=== PATIENT | female | born 1980 | race Two or more races ===

== ENCOUNTER 2024-06-08 12:48 | Emergency (ER) | payer MEDICAID, SELFPAY ==
[2024-06-08 13:10] VITALS: BP 117/78; PULSE 98; RESP 20; TEMP 37; O2SAT 98
[2024-06-08 13:39] VITALS: PULSE 108; RESP 18; O2SAT 98; BMI 24.7
[2024-06-08 13:45] LABS: Base Excess, Venous -3 (-3-3); O2 Saturation, Venous 78 % (96-97); PCO2, Venous 36 mmHg (36-56); PO2, Venous 45 mmHg (15-58); pH, Venous 7.39 (7.33-7.66)
--- NOTE | 2024-06-08 13:49 | PC.NURSE ---
Patient to er via ems from snf, patient was being released and was erratic, unable to compile with safety plan, therefore, patient placed on 72hr hold for gravely disable, no SI or HI, however, upon EMS arrival patient was combative and yelling out, ems placed patient in restraints and patient was given 4mg Versed IM by EMS, patient sleeping, awakens to touch, patient not answering all questions, yells intermittently, continued need for restraints per Provider do to patient being combative, 1:[address] for patient and staff safety.
[2024-06-08 13:52] LABS: Basophils % (Auto) 0 % (0-2.5); Eosinophils # (Auto) 0.1 Thou/mm3 (0.0-0.5); Eosinophils % (Auto) 1 % (0-10); Hematocrit 27.9 % (36.0-46.0); Hemoglobin 8.9 g/dL (12.0-16.0); Immature Granulocytes % (Auto) 1 % (0-0); Immature Granulocytes Auto 0.05 Thou/mm3 (0.00-0.00); Lymphocytes # (Auto) 1.8 Thou/mm3 (1.0-4.8); Lymphocytes % (Auto) 19 % (10-50); Mean Corpuscular HGB Conc 31.9 g/dl (31.0-37.0); Mean Corpuscular Hemoglobin 26.8 pg (25.0-35.0); Mean Corpuscular Volume 84 fL (80-100); Monocytes # (Auto) 0.7 Thou/mm3 (0.0-0.8); Monocytes % (Auto) 8 % (0-12); Neutrophils # (Auto) 6.8 Thou/mm3 (1.8-7.7); Neutrophils % (Auto) 72 % (37-80); Nucleated Red Blood Cell % 0 /100 WBC (0); Platelet Count 248 Thou/mm3 (140-440); RDW Standard Deviation 45.1 fL (36.4-46.3); Red Blood Count 3.32 Miln/mm3 (4.00-5.20); White Blood Count 9.5 Thou/mm3 (3.6-11.0)
--- NOTE | 2024-06-08 13:54 | PC.NURSE ---
Patient sleeping intermittently, no hyperactivity noted at this time, all 4point soft restraints removed, 1:[address] for patient and staff safety.
--- NOTE | 2024-06-08 13:55 | PC.NURSE ---
patient allowed lab to draw blood work.
[2024-06-08 14:15] LABS: Acetaminophen < 2.0 mcg/mL (10.0-20.0); Alanine Aminotransferase 7 U/L (10-49); Albumin, Serum 3.6 gm/dL (3.5-5.0); Albumin/Globulin Ratio 0.9 (1.2-2.2); Alcohol, Blood Medical < 3.0 mg/dL (0-10.0); Alkaline Phosphatase 84 U/L (46-116); Anion Gap 14 (7-16); Aspartate Amino Transferase 18 U/L (0-34); BUN/Creatinine Ratio 24 Ratio (12-20); Bilirubin,Total 0.8 mg/dL (0.3-1.2); Blood Urea Nitrogen 19 mg/dL (9-23); Calcium 9.3 mg/dL (8.3-10.6); Calcium (Corrected) 9.6 mg/dL (8.5-10.1); Carbon Dioxide 19.9 mMol/L (20.0-31.0); Chloride 103 mMol/L (98-107); Creatine Kinase 103 U/L (34-171); Creatinine (Component) 0.8 mg/dL (0.6-1.3); Estimated Creatinine Clearance 76.5 mL/min (>60); Globulin 4.1 gm/dL (2.3-3.5); Glucose 77 mg/dL (74-106); Magnesium 1.8 mg/dL (1.6-2.6); Osmolality,Calculated 275 (275-295); Potassium 3.4 mMol/L (3.4-5.1); Salicylate < 3.0 mg/dL; Sodium 137 mMol/L (136-145); Thyroid Stimulating Hormone 1.18 uIU/mL (0.55-4.78); Total Protein 7.7 gm/dL (5.7-8.2); eGFR > 60 See Note
[2024-06-08 14:17] LABS: HCG,Qualitative Serum Negative
--- NOTE | 2024-06-08 16:22 | PC.SS ---
Patient PORTER on 5150 Hold from [facility] for DTO and Gravely Disabled. 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 During those visits, the patient was cleared by [facility] Crisis staff and/or [facility] social media community manager staff and referred with outpatient services/resources. Bakari met at bed side with the patient. ASW introduced self, role and reason for contact. ASW disclosed limits of confidentiality. During contact, the patient appeared alert to self, however not to place or situation. Patient denies knowledge of what brought her into the ED. Patient's thought process is unclear and disorganized. Patient denies having a history of mental health and/or taking medications. Patient admits to substance use. Patient reports choice of substance is methamphetamine. Patient reports daily use of substance. Patient denies being connected to any outpatient services. Per patient, she reports being able to complete ADL's. Denies use of DME. Patient informs she goes to [facility] in [place] for primary care. Patient assigned her sister, Rylie Hazel as her emergency contact and gave verbal consent for family to be contacted. Patient confirmed home address on facesheet. Patient currently denies SI and HI. Patient denies audio and visual hallucinations at this time. Patient is pending medical clearance at this time.
--- NOTE | 2024-06-08 16:40 | PD.EDPSYCH ---
ED Psych RME/HPI General Chief Complaint: Psychiatric Symptoms Stated Complaint: MENTAL EVAL Time Seen by Provider: 06/08/24 13:02 Arrival date/time: 06/08/24 12:48 RME / HPI RME / HPI Narrative: This section includes all my notes and documentations, including HPI, PE, and ED course. Siddharth Tarango MD HPI: 43-year-old female here for psychiatric evaluation. With 5150 hold from a nearby snf. With psychosis and delusions. And aggressive and combative behavior and inappropriate behavior, including urinating on herself and sexually inappropriate gestures. Can't obtain history from the patient. She doesn't answer questions appropriately or directly. ROS: Can't obtain from the patient due to current clinical condition. Physical Exam: General: Alert but uncertain about orientation. She doesn't answer my questions. She yelled loudly and aggressively, swearing in Syriac at everyone nearby. Unable to assess SI or HI or hallucinations. Eyes: Conjunctivae and lids clear. EOMI. PERRL. ENT: No nasal congestion. Neck: Supple. Heart: RRR. Lungs: No respiratory distress. Good air movement. No rhonchi, wheezing, rales. Abdomen: Soft and nontender. Legs: No clubbing, cyanosis, edema. Skin: Warm and dry. Neuro: Alert. Cranial Nerves II-XII grossly intact. No peripheral motor deficits. Blood tests unremarkable. Urine specimen pending. Patient received Versed by EMS. Patient eventually fell asleep and remained stable. At 6 PM on 06/08/2024, the care of the patient was transferred to Dr. Francis. Siddharth Tarango MD Related Data Home Medications ?Medication ?Instructions ?Recorded ?Confirmed Unobtainable 12/18/20 01/03/21 Allergies Allergy/AdvReac Type Severity Reaction Status Date / Time No Known Allergies Allergy Verified 10/08/20 09:58 Course Quality Measures none Orders Category Date Time Status 4 HR Behavioral Restraints Q15M Care 06/08/24 13:57 Active Acetaminophen Stat Lab 06/08/24 13:42 Completed Alcohol, Blood Medical Stat Lab 06/08/24 13:42 Completed CBC Stat Lab 06/08/24 13:42 Completed CK [Creatine Kinase] Stat Lab 06/08/24 13:42 Completed CMP [Comprehensive Metabolic Panel] Stat Lab 06/08/24 13:42 Completed Drug Screen,Urine Stat Lab 06/08/24 13:03 Ordered HCG Qualitative,Urine Stat Lab 06/08/24 13:03 Ordered HCG,Qualitative Serum Stat Lab 06/08/24 13:42 Completed Magnesium Stat Lab 06/08/24 13:42 Completed Salicylate Stat Lab 06/08/24 13:42 Completed TSH [Thyroid Stimulating Hormone] Stat Lab 06/08/24 13:42 Completed UA, C/S IF [Urinalysis, C/S if Indicated] Stat Lab 06/08/24 13:03 Ordered VBG [Venous Blood Gas] Stat Lab 06/08/24 13:42 Completed Vital Signs Vital signs: Vital Signs Temperature 98.6 F 06/08/24 13:10 Pulse Rate 98 06/08/24 13:10 Respiratory Rate 20 06/08/24 13:10 Blood Pressure 117/78 06/08/24 13:10 Pulse Oximetry (%) 98 06/08/24 13:10 Oxygen Delivery Method Room Air 06/08/24 13:10 Psych Patient data External records reviewed:: [facility] previous records and EMS form Clinical information provided by:: EMS and law enforcement Social determinants that could affect healthcare access:: mental health Patient has the following chronic illnesses:: Substance abuse How is presenting disease/condition affected by chronic disease/condition?: exacerbated by Evaluation data The following diagnostics were reviewed and interpreted by me:: lab results Lab and/or radiology exams considered but not ordered:: None Interpretation Summary: Complete diagnostics pending Medications / Prescriptions Medications or Prescriptions considered but not ordered:: None Medication administrations:: None Consultations Consultation(s) initiated? (list below): No Diagnosis Psych Differential Diagnosis: acute psychosis, chronic schizophrenia, suicidal ideation, bipolar disorder, depression, drug-induced psychotic disorder and acute anxiety Most likely diagnosis given after review of the tests above:: Acute psychosis and probable drug influence Admission Indicated Admission indicated?: not indicated (Complete diagnostics pending) Explain why admission is indicated or not indicated:: Complete diagnostics pending Admission Request Was there a request for admission?: No Disposition Plan Disposition Plan: other (specify) (Care of the patient transferred to Dr. Francis) Discharge Plan Prescriptions/Referrals Prescriptions/Med Rec: No Action Unobtainable Referrals: Clifford Kathleen MD [Primary Care Provider] - In 1 week Problem List Clinical Impression: Acute psychosis Patient/Caregiver Discharge Instructions Print Language: Syriac
[2024-06-08 16:49] VITALS: BP 115/64; PULSE 102; RESP 16; TEMP 37; O2SAT 100
--- NOTE | 2024-06-08 17:11 | PC.SS ---
Collateral contact: Attempted contact with patient's sister, Rylie Hazel at . There was no answer and voicemail was provided. Established contact with patient's mother, Tiffanie Love . Tiffanie informs patient has severe substance use history. Tiffanie reports [place]. Per Tiffanie the patient was in [facility] for approximately one year and had remained sober of substances and seeking mental health services. Per Tiffanie, the patient was recently released from [facility] and on Thursday of this week the patient was again arrested and taken into custody, which deputies informed her that the patient would only be held for a short period and then released. Tiffanie reports the patient has a history of mental health, unknown if diagnosed with Schizophrenia. Per Tiffanie the patient was connected to [facility] in the past and was connected to AOD services, with random drug testing when sober. Patient's mother informs the patient does not have a partner or spouse. She reports the patient has four children, who are adult ages with exception of a minor of 17 years of age under their father's Harvey Robert custody. Tiffanie informs the patient does not have any contact with her children nor ex-partner Harvey. Patient's mother Tiffanie informs the address on facesheet is her home address and informs she is willing to safety plan and provided patient with support and ensure outpatient service follow up is established.
--- NOTE | 2024-06-08 17:41 | PC.NURSE ---
Patient more calm and cooperative answering questions appropriately, patient denies SI and HI, informed her of need of urine sample, patient placed on bed landry. Patient hungry, ok to order regular food tray per Dr. Tarango
--- NOTE | 2024-06-08 18:22 | PD.EDADDENDU ---
Emergency Room Addendum Addendum Narrative: [address] Tarango, the previous shift emergency physician. Past medical, surgical, social and family history reviewed. Vitals and home medications reviewed. Results and treatment plan discussed. I will assume the care of the patient at this time and will follow the patient, pending mental health evaluation and possible placement. Please refer to the emergency department record for history and examination from initial visit. Patient was placed in ED observation for treatment and monitoring of psychiatric symptoms, at 1800 06/08/2024. Symptoms consist of psychosis and delusions, aggressive and combative behavior and inappropriate behavior, including urinating on herself and sexually inappropriate gestures per previous ED provider. Treatment plan includes psychiatric consult, reassessments, and possible placement into psychiatric facility. The patient had access and provided personal hygiene, shower, food, water, and daily medications. 2141 Patient is medically cleared for mental health evaluation. 0600 Care signed out to oncoming dayshift provider. Past medical, surgical, social and family history reviewed. Vitals and home medications reviewed. Results and treatment plan discussed. They will assume the care of the patient at this time and will follow the patient, pending mental health evaluation and possible placement.
[2024-06-08 19:37] LABS: Collection Type, Urine Clean Catch
[2024-06-08 20:04] LABS: HCG Qualitative,Urine Negative
[2024-06-08 20:06] LABS: Bilirubin,Urine Negative (Negative); Blood,Urine Negative (Negative); Clarity,Urine Clear (Clear/Hazy); Color,Urine Yellow (Lt Yel-Yel); Culture Indicated,Urine Not Indicated; Glucose, Urine Negative (Negative); Ketones,Urine 4+ (Negative); Leukocyte Esterase,Urine Negative (Negative); Nitrite,Urine Negative (Negative); Protein,Urine 1+ (Neg - Trace); RBC,Urine 3 /hpf (0-3); Specific Gravity,Urine 1.036 (1.001-1.035); Squamous Epithelial Cell,Urine 9 /hpf (0-5); Urobilinogen,Urine Negative mg/dL (0.0-1.0); WBC,Urine 3 /hpf (0-5)
[2024-06-08 20:22] VITALS: BP 112/70; PULSE 82; RESP 16; TEMP 36.9; O2SAT 100
[2024-06-08 21:02] LABS: Amphetamine/Methamp Scrn,U Positive (Negative); Barbiturate Screen,Urine Negative (Negative); Benzodiazepines Screen,Urine Positive (Negative); Benzoylecgonine Screen, Ur Negative (Negative); Fentanyl Screen,Urine Negative (Negative); Opiate Screen,Urine Negative (Negative); THC Screen,Urine Negative (Negative)
[2024-06-08] MEDS: SODIUM CHLORIDE 0.9% 1000 ML 1,000 ML 999 ML IV (22:40)
[2024-06-09 01:41] VITALS: BP 132/78; PULSE 76; RESP 16; TEMP 36.8; O2SAT 100
[2024-06-09 06:05] VITALS: BP 106/66; PULSE 86; RESP 18; TEMP 36.8; O2SAT 99
[2024-06-09 07:55] VITALS: BP 98/57; PULSE 73; RESP 16; TEMP 36.6; O2SAT 100
--- NOTE | 2024-06-09 07:55 | PC.NURSE ---
Pt woken up for meal tray and vital signs. Pt calm and sooperative at this time. Pt states is in the hospital because i yelled at my cousin>' Informed pt that social worker school will come see her later.
--- NOTE | 2024-06-09 08:24 | PD.EDADDENDU ---
Emergency Room Addendum <Giovanna Guy - Last Filed: 06/09/24 08:44> Addendum Narrative: At 6 AM on 06/09/2024, the care of the patient was transferred from Dr. Francis, see his notes for complete H&P and ED course. I reviewed all diagnostic test results. At this point, diagnoses include Treatment here included Significant improvement Our ASW has evaluated the patient and rescinded the 5150 hold. Report patient does not meet admission criteria. Patient discharged home in stable condition. Siddharth Tarango MD <Siddharth Tarango MD - Last Filed: 06/09/24 09:06> Addendum Narrative: At 6 AM on 06/09/2024, the care of the patient was transferred from Dr. Francis, see his notes and previous notes for complete H&P and ED course. Diagnostic tests remarkable for positive methamphetamine on UDS. Patient returned to baseline. Our ASW has evaluated the patient and rescinded the 5150 hold. Reports patient does not meet admission criteria. Patient discharged home in stable condition. Based on my best medical judgment, made decision no further evaluation or treatment indicated at this time.? Patient understands and agrees to the discharge instructions customized and printed, see below. Siddharth Tarango MD Discharge instructions from Dr. Tarango: 1. You are being discharged home because you return to your baseline after methamphetamine intoxication. 2. To prevent future similar episodes which can be even more severe, potentially causing severe injuries and even being fatal, avoid methamphetamine and all other illegal substances. 3. See a private doctor on 06/10/2024 for recheck and further care. Including help with psychiatric and mental health services. 4. Seek immediate medical care with worsening or with any concerns. Instrucciones de ricky del Dr. Tarango: 1. Le est?n dando el ricky para irse a casa porque newby vuelto a maxwell estado normal despu?s de la intoxicaci?n con metanfetamina. 2. Para prevenir futuros episodios similares que pueden ser incluso m?s graves, potencialmente causando lesiones graves e incluso fatales, evite la metanfetamina y todas las dem?s sustancias ilegales. 3. Visite a un m?dico privado el 10/06/2024 para volver a examinarlo y recibir m?s atenci?n. Incluyendo ayuda con servicios psiqui?tricos y de mckayla mental. 4. Busque atenci?n m?dica inmediata si empeora o si tiene alguna inquietud. Siddharth Tarango MD
--- NOTE | 2024-06-09 08:30 | PC.CC ---
Patient is 43 year old female BIBA on 5150 Hold from [facility] for DTO and Gravely Disabled. Waqar met at bed side with the patient. ASW introduced self, role and reason for contact. ASW disclosed limits of confidentiality. Patient appeared alert and oriented to self, location, and situation. Patient?s mood was euthymic and engaged in assessment. Patient?s thought process was linear and organized. Patient reports suicidal ideations 6-7 years ago but denies current suicidal ideation. Patient denies auditory and visual hallucination and homicidal ideations. Patient admits to substance use. Patient reports choice of substance is methamphetamine. Patient reports daily use of substance. Patient denies being connected to any outpatient services. Patient stated, ?I don?t need mental health services because I am not crazy.? Patient reports she is homeless. Patient reports she is tired and just needs to rest and eat at her mother, Tiffanie?s home. Patient does not want to be connected to mental health services. The following information was gathered from Rosemary KING on 06/08/2024. Collateral contact: Attempted contact with patient's sister, Rylie Hazel at . There was no answer and voicemail was provided. Established contact with patient's mother, Tiffanie Love . Tiffanie informs patient has severe substance use history. Tiffanie reports [place] on and off. Per Tiffanie the patient was in [facility] for approximately one year and had remained sober of substances and seeking mental health services. Per Tiffanie, the patient was recently released from [facility] and on Thursday of this week the patient was again arrested and taken into custody, which deputies informed her that the patient would only be held for a short period and then released. Tiffanie reports the patient has a history of mental health, unknown if diagnosed with Schizophrenia. Per Tiffanie the patient was connected to [facility] in the past and was connected to AOD services, with random drug testing when sober. Patient's mother informs the patient does not have a partner or spouse. She reports the patient has four children, who are adult ages with exception of a minor of 17 years of age under their father's Harvey Robert custody. Tiffanie informs the patient does not have any contact with her children nor ex-partner Harvey. Patient's mother Tiffanie informs the address on facesheet is her home address and informs she is willing to safety plan and provided patient with support and ensure outpatient service follow up is established. ASW, made contact with patient?s mother Tiffanie who reports she is willing to take the patient into her home and attempt to provide extra supervision for the next 72 hours, but ultimately the patient is an adult and can make her own choices. Upon clinical consultation with Tatum Levin, patient?s 5150-hold will be rescinded with safety plan as patient does not meet criteria. Safety plan is patient will be discharged to her mother?s home. Referral for outpatient mental health services at [facility] with AOD services. ?
--- NOTE | 2024-06-09 08:33 | PC.CC ---
Afshan KING proivided update of discharge plan with safety plan to Dr. Tarango, senior attorney Sara, and SANDI Tom.
--- NOTE | 2024-06-09 09:02 | PC.NURSE ---
social media director has cleared pt from 6080 hold
== END 2024-06-09 09:12 | disposition home or self-care (01) ==
PROVIDERS: Emergency Provider Emergency Medicine; PCP Family Medicine
DX: Z00.8 Encounter for other general examination (principal); F23 Brief psychotic disorder; F15.10 Other stimulant abuse, uncomplicated; Z78.1 Physical restraint status
CPT/HCPCS: 36415; 80053; 80307; 80320; 80329; 81001; 81025; 82550; 82803; 83735; 84443; 84703; 85025; 90839; 96127; 96360; 99285; J7030; G0480

== ENCOUNTER 2024-08-26 12:38 | Emergency (ER) | payer MEDICAID, SELFPAY ==
[2024-08-26 12:53] VITALS: BP 127/85; PULSE 72; RESP 17; TEMP 36.8; O2SAT 100
--- NOTE | 2024-08-26 12:56 | PD.EDRME ---
Rapid Medical Screening Exam RME Arrival date/time: 08/26/24 12:38 44-year-old female with history of psychiatric disorder as well as methamphetamine abuse presents for concerns for anxiety and depression Chief Complaint: Depression Vital signs: Vital Signs Temperature 98.2 F 08/26/24 12:53 Pulse Rate 72 08/26/24 12:53 Respiratory Rate 17 08/26/24 12:53 Blood Pressure 127/85 H 08/26/24 12:53 Pulse Oximetry (%) 100 08/26/24 12:53 Oxygen Delivery Method Room Air 08/26/24 12:53
[2024-08-26 13:17] LABS: Collection Type, Urine Clean Catch
[2024-08-26 13:24] LABS: Bacteria,Urine Rare; Bilirubin,Urine Negative (Negative); Blood,Urine Negative (Negative); Color,Urine Lt-Yellow (Lt Yel-Yel); Culture Indicated,Urine Contaminated; Glucose, Urine Negative (Negative); Ketones,Urine Negative (Negative); Leukocyte Esterase,Urine Positive (Negative); Nitrite,Urine Negative (Negative); PH,Urine 6.5 (5.0-7.0); Protein,Urine Negative (Neg - Trace); RBC,Urine 5 /hpf (0-3); Specific Gravity,Urine 1.019 (1.001-1.035); Squamous Epithelial Cell,Urine 122 /hpf (0-5); Urobilinogen,Urine Negative mg/dL (0.0-1.0); WBC,Urine 14 /hpf (0-5)
[2024-08-26 13:28] LABS: Basophils % (Auto) 0 % (0-2.5); Eosinophils % (Auto) 1 % (0-10); Hematocrit 34.1 % (36.0-46.0); Hemoglobin 11.1 g/dL (12.0-16.0); Immature Granulocytes % (Auto) 0 % (0-0); Immature Granulocytes Auto 0.01 Thou/mm3 (0.00-0.00); Lymphocytes # (Auto) 1.5 Thou/mm3 (1.0-4.8); Lymphocytes % (Auto) 29 % (10-50); Mean Corpuscular HGB Conc 32.6 g/dl (31.0-37.0); Mean Corpuscular Hemoglobin 26.9 pg (25.0-35.0); Mean Corpuscular Volume 83 fL (80-100); Monocytes # (Auto) 0.3 Thou/mm3 (0.0-0.8); Monocytes % (Auto) 5 % (0-12); Neutrophils # (Auto) 3.3 Thou/mm3 (1.8-7.7); Neutrophils % (Auto) 64 % (37-80); Nucleated Red Blood Cell % 0 /100 WBC (0); Platelet Count 218 Thou/mm3 (140-440); RDW Standard Deviation 46.9 fL (36.4-46.3); Red Blood Count 4.12 Miln/mm3 (4.00-5.20); White Blood Count 5.1 Thou/mm3 (3.6-11.0)
[2024-08-26 13:30] LABS: Clarity,Urine Hazy (Clear/Hazy)
[2024-08-26 13:33] LABS: HCG Qualitative,Urine Negative
[2024-08-26 13:35] LABS: Amphetamine/Methamp Scrn,U Negative (Negative); Barbiturate Screen,Urine Negative (Negative); Benzodiazepines Screen,Urine Negative (Negative); Benzoylecgonine Screen, Ur Negative (Negative); Fentanyl Screen,Urine Negative (Negative); Opiate Screen,Urine Negative (Negative); THC Screen,Urine Negative (Negative)
[2024-08-26 14:03] LABS: Alanine Aminotransferase < 7 U/L (10-49); Albumin, Serum 3.9 gm/dL (3.5-5.0); Albumin/Globulin Ratio 1.1 (1.2-2.2); Alcohol, Blood Medical < 10.0 mg/dL (0-10.0); Alkaline Phosphatase 80 U/L (46-116); Anion Gap 5 (7-16); Aspartate Amino Transferase 13 U/L (0-34); BUN/Creatinine Ratio 17 Ratio (12-20); Bilirubin,Total 0.3 mg/dL (0.3-1.2); Blood Urea Nitrogen 12 mg/dL (9-23); Calcium 8.9 mg/dL (8.3-10.6); Carbon Dioxide 29.5 mMol/L (20.0-31.0); Chloride 103 mMol/L (98-107); Creatinine (Component) 0.7 mg/dL (0.6-1.3); Globulin 3.5 gm/dL (2.3-3.5); Glucose 123 mg/dL (74-106); Osmolality,Calculated 274 (275-295); Potassium 4.3 mMol/L (3.4-5.1); Sodium 137 mMol/L (136-145); Total Protein 7.4 gm/dL (5.7-8.2); eGFR > 60 See Note
--- NOTE | 2024-08-26 16:20 | PD.EDANX ---
ED Anxiety RME/HPI General Chief Complaint: Depression Stated Complaint: ANXIETY AND DEPRESSION Time Seen by Provider: 08/26/24 16:20 Arrival date/time: 08/26/24 12:38 RME / HPI RME / HPI narrative: 44-year-old female with history of psychiatric disorder as well as methamphetamine abuse presents for concerns for anxiety and depression. Patient stopped using meth, for more than a week, now she is having a lot of anxiety like symptoms, described as palpitation jittery, and feeling very anxious. Denies any homicidal or suicidal ideation. Related Data Previous Rx's ?Medication ?Instructions ?Recorded hydroxyzine HCl 50 mg tablet 50 mg PO TID PRN anxiety #30 tabs 08/26/24 Allergies Allergy/AdvReac Type Severity Reaction Status Date / Time No Known Allergies Allergy Verified 08/26/24 12:41 Review of Systems Review of Systems Narrative Review of Systems: Review of system reviewed and within normal limits except mentioned in HPI ED Exam Narrative Physical exam: VITAL SIGNS: Reviewed. GENERAL APPEARANCE: Alert and interactive, follows commands, no acute distress, anxious HEAD AND FACE: Non-traumatic. ENT: PERRL, pink conjunctivitis, eyelid no trauma, Mucous membrane moist. NECK: Supple, nontender, no nuchal rigidity. CHEST: No tenderness, no crepitus, no paradoxical movement, no retractions. LUNGS: Clear, well ventilated, symmetric, no rales, no wheezing, no ronchi, no stridor, good breath sounds bilaterally. HEART: Regular rate, regular rhythm, no murmur, no gallops. ABDOMEN: Soft, positive bowel sounds, nondistended, no guarding, nontender, no rebound, no masses, RECTAL: Deferred. GENITAL: Deferred. NEUROLOGICAL: Gross motor function intact sensory function intact, Appropriate for age. MUSCULOSKELETAL: low back nontender, full range of motion. EXTREMITIES: Nontender, full range of motion. SKIN: Color pink, dry, no rash, no lacerations, no abrasions, no contusions. LYMPHATICS: Deferred. Course Quality Measures none Orders Category Date Time Status Consult [employer] NOW Care 08/26/24 12:55 Active Alcohol, Blood Medical Stat Lab 08/26/24 13:13 Completed CBC Stat Lab 08/26/24 13:13 Completed Comprehensive Metabolic Panel Stat Lab 08/26/24 13:13 Completed Drug Screen,Urine Stat Lab 08/26/24 13:04 Completed HCG Qualitative,Urine Stat Lab 08/26/24 13:04 Completed UA, C/S IF [Urinalysis, C/S if Indicated] Stat Lab 08/26/24 13:04 Completed DiphenhydrAMINE [Benadryl] Med 08/26/24 16:20 Once 50 mg PO X1 ONE Vital Signs Vital signs: Vital Signs Temperature 98.2 F 08/26/24 12:53 Pulse Rate 72 08/26/24 12:53 Respiratory Rate 17 08/26/24 12:53 Blood Pressure 127/85 H 08/26/24 12:53 Pulse Oximetry (%) 100 08/26/24 12:53 Oxygen Delivery Method Room Air 08/26/24 12:53 Anxiety MDM Narrative MDM Narrative: Patient was seen and evaluated by his social service agency director, who told me that patient is stable for discharge home. Patient was given Benadryl p.o. in the emergency room. I noticed patient is more calm than earlier. Patient will be sent home on hydroxyzine. Patient was also advised to not go back on abusing methamphetamine. Patient data External records reviewed:: None Clinical information provided by:: patient Social determinants that could affect healthcare access:: substance use Patient has the following chronic illnesses:: Methamphetamine How is presenting disease/condition affected by chronic disease/condition?: exacerbated by Evaluation data The following diagnostics were reviewed and interpreted by me:: lab results Lab and/or radiology exams considered but not ordered:: None Interpretation Summary: Patient's workup today came back unremarkable. Medications / Prescriptions Medications or Prescriptions considered but not ordered:: None Medication administrations:: Benadryl Consultations Consultation(s) initiated? (list below): No Diagnosis Differential diagnosis anxiety: hyperventilation, panic disorder and acute anxiety Most likely diagnosis given after review of the tests above:: Although pt's initial presentation was concerning, Pt now reports feeling better after Ativan and has an unremarkable vital signs. Stable for D/C. Hydroxyzine given as needed Admission Indicated Admission indicated?: not indicated Admission Request Was there a request for admission?: No Admission Attestation Admission request attestation: Stable Disposition Plan Disposition Plan: Discharge Discharge Attestation Discharge Attestation: The patient and all family members were given an opportunity to ask questions and understood the discharge instructions. Discharge instructions specifically effects, indications for sooner follow up or return to the emergency department, and the expected course of current diagnosis. Patient condition: Stable Discharge Plan Plan Patient Disposition: HOME (Self Care) Disposition Comment: Stable Prescriptions/Referrals Prescriptions/Med Rec: New hydroxyzine HCl 50 mg tablet 50 mg PO TID PRN (Reason: anxiety) Qty: 30 0RF Referrals: Clifford Kathleen MD [Primary Care Provider] - In 1 week Problem List Clinical Impression: Acute anxiety Patient/Caregiver Discharge Instructions Discharge Activity: activity as tolerated Education Materials: ED Anxiety Reaction Additional Instructions: Thank you for the opportunity for serving you today. You are stable for discharged . You are advised to: Follow-up with your mental health MD as instructed Return to ED for worsening of symptoms Increase oral fluids Take medication as prescribed Print Language: Bulgarian Stand Alone Forms: Shivani Award Info., Patient Portal Info Letter
[2024-08-26] MEDS: DiphenhydrAMINE 25 MG CAPSULE 50 MG PO (16:23)
--- NOTE | 2024-08-26 16:32 | PC.CC ---
Patient presents to the hospital for mental health evaluation due to feeling anxious. Patient reports she stopped using drugs a week ago. ASWAfshan and DENTAL COORDINATOR Student Esther made [id number] contact with patient. ASW introduced self, role, and reason for visit. Patient appeared alert and oriented to self, location, and situation. Patient provided consent for DENTAL COORDINATOR Student to remain in the room during assessment. At bedside was patient's mother, Tiffanie Love to remain in the room during assessment. Patient was pleasant and engaged in initial assessment. Patient made appropriate eye contact throughout assessment, patient was dressed appropriate for the weather, patient was well kempt and groomed. Patient had good judgment and insight. Patient reports she has been having anxiety for the past week as she stopped using methamphetamine. Patient reports she was recently discharge from [facility] 2 weeks ago and was released to the [facility] then used drugs again. Patient decided she wanted to get sober and came to live with her mother in [place]. Mother confirmed this information. At the time of encounter the patient denied suicidal and homicidal ideations, visual and auditory hallucinations. Patient reports her last suicide attempt was 4 years ago. Patient reports she had an intake assessment with [facility] and does not know what she was diagnosed with. Patient's mother reports she feels safe taking her home and will remain with her for the next 72 hours. Upon clinical consulatation with Tatum DUNAWAY the patient does not meet criteria for a 5150-hold. Patient is to be provided with resources and appointment to PAC. Patient provided consent for ASW to make contact with PAC to obtain an appointment for patient to be seen by a therapist and psychiatrist. ASW made contact with Mari at [facility] who provided an appointment for the patient on Thursday August 29, 2024 at 2pm. ASW provided appointment date and time to patient, [facility] Resource Guide, Warm Line Number, and was instructed to return if she feels worse. ASW informed mother to keep an eye out for medications, and provide extra support and supervision for the next 72 hours, to bring patient back if she needs to come back. ASW provided update to radio maintainer Denise, QUAN Shepherd, and bedside SANDI Gabriel.
[2024-08-26 16:44] VITALS: BP 120/76; PULSE 65; RESP 16; TEMP 36.8; O2SAT 100
== END 2024-08-26 17:06 | disposition home or self-care (01) ==
PROVIDERS: Nurse Practitioner Primary Care; Emergency Provider Emergency Medicine; PCP Family Medicine
DX: F41.9 Anxiety disorder, unspecified (principal); F32.A Depression, unspecified
CPT/HCPCS: 36415; 80053; 80307; 80320; 81001; 81025; 85025; 90839; 99283; A9270; G0480